=== PATIENT | male | born 1950 | race Caucasian/White ===

== ENCOUNTER 2024-11-21 10:08 | Emergency (ER) | payer OTHER ==
[2024-11-21] MEDS ORDERED: LEVETIRACETAM IN NACL (ISO-OS) 100 ML IV ONE (10:55)
[2024-11-21] MEDS ORDERED: SODIUM CHLORIDE 0.9% 0 ML IV ONE (10:59)
[2024-11-21] MEDS ORDERED: IOHEXOL 350 MG/ML 100 ML VIAL IV ONE (10:59)
[2024-11-21 11:10] LABS: BASO # 0.1 10*3/uL (0.0-0.1); BASO % 0.9 % (0.0-1.0); EOS # 0.3 10*3/uL (0.0-0.4); EOS % 6.3 % (1.0-4.0); HEMATOCRIT 49.2 % (42.0-52.0); MEAN CELL VOLUME 92.3 fl (80.0-94.0); MEAN CORPUSCULAR HGB 30.6 pg (27.0-31.0); MEAN CORPUSCULAR HGB CONC 33.1 g/dl (33.0-37.0); MEAN PLATELET VOLUME 9.5 fl (9.6-12.3); MONO # 0.5 10*3/uL (0.1-1.0); MONO % 8.6 % (3.0-9.0); NEUT # 3.3 10*3/uL (2.3-7.9); NEUT % 60.7 % (47.0-73.0); PLATELET COUNT AUTOMATED 192 10*3/uL (130-400); RED BLOOD COUNT 5.33 10*6/uL (4.50-5.90); WHITE BLOOD COUNT 5.4 10*3/uL (4.8-10.8)
[2024-11-21 11:34] LABS: ACT PARTIAL THROMBO TIME 28.5 SECONDS (20.0-32.1)
[2024-11-21] MEDS ORDERED: ACETAMINOPHEN 325 MG TAB PO ONE (12:30)
== END 2024-11-21 14:25 | disposition short-term general hospital (02) ==
LOC: ED 10:08
PROVIDERS: Emergency Medicine
DX: I69.220 Aphasia following other nontraumatic intracranial hemorrhage (principal); R47.1 Dysarthria and anarthria; R29.810 Facial weakness; I25.2 Old myocardial infarction; K21.9 Gastro-esophageal reflux disease without esophagitis; R10.2 Pelvic and perineal pain

== ENCOUNTER → 2025-07-16 | Outpatient (CLI) | payer OTHER | END | disposition home or self-care (01) | LOC: ORTHO 00:43 | PROVIDERS: ATTEND Orthopaedic Surgery | DX: M79.641 Pain in right hand (principal) ==